=== PATIENT | female | born 1980 | race Caucasian/White ===

== ENCOUNTER 2019-12-02 21:57 | Emergency (ER) | payer MEDICAID, OTHER ==
[~2019-12-02] VITALS: Ht 144.8 cm; Wt 80.7 kg
[~2019-12-02 21:57] MED LIST: UNKNOWN ANTIBIOTIC
[2019-12-02 22:00] VITALS: BP 139/71
[2019-12-02] MEDS ORDERED: IBUPROFEN 600 MG TAB PO ONE (22:25)
[2019-12-02 23:44] VITALS: BP 139/71
== END 2019-12-02 23:44 | disposition home or self-care (01) ==
LOC: MED 21:57
DX: S06.0X9A Concussion with loss of consciousness of unspecified duration, initial encounter (principal); S00.83XA Contusion of other part of head, initial encounter; S40.812A Abrasion of left upper arm, initial encounter; Y08.89XA Assault by other specified means, initial encounter; Y93.89 Activity, other specified; Y92.89 Other specified places as the place of occurrence of the external cause; Y99.8 Other external cause status
CPT/HCPCS: 70450; 70486; 81025; 99285

== ENCOUNTER 2022-12-23 15:10 | Emergency (ER) | payer MEDICAID ==
[~2022-12-23] VITALS: Ht 157.5 cm; Wt 81.6 kg
[2022-12-23 15:22] VITALS: BP 139/70
[2022-12-23] MEDS ORDERED: LIDOCAINE 5% 1 EA PATCH TP SCH (15:45)
[2022-12-23] MEDS ORDERED: CYCLOBENZAPRINE 10 MG TAB PO ONE (15:45)
[2022-12-23 16:04] LABS: BASOPHILS # (AUTO) 0.1 K/uL (0.00-0.22); BASOPHILS % (AUTO) 1.2 % (0.0-2.0); EOSINOPHILS % (AUTO) 9.5 % (0.0-4.0); HEMATOCRIT 38.7 % (36-48); HEMOGLOBIN 13.6 g/dL (12.0-16.0); LYMPHOCYTES % (AUTO) 19.8 % (20.5-51.1); MEAN CORPUSCULAR HEMOGLOBIN 32 pg (27-31); MEAN CORPUSCULAR HGB CONC 35 g/dL (33-37); MEAN CORPUSCULAR VOLUME 89.7 fL (80-94); MONOCYTES # (AUTO) 0.6 K/uL (0.8-1.0); MONOCYTES % (AUTO) 6.1 % (1.7-9.3); NEUTROPHILS # (AUTO) 6.5 K/uL (1.8-7.7); NEUTROPHILS % (AUTO) 63.4 % (42.2-75.2); PLATELET COUNT (AUTO) 303 K/uL (140-450); RED BLOOD CELL COUNT(AUTO) 4.31 MIL/uL (4.20-5.40); RED CELL DISTRIBUTION WIDTH 12.8 % (11.6-13.7); WHITE BLOOD COUNT (AUTO) 10.2 K/uL (4.8-10.8)
[2022-12-23 16:13] LABS: ANION GAP 11.2 (8-16); CARBON DIOXIDE 26.7 mmol/L (21-32); CREATININE 0.7 mg/dL (0.6-1.3); POTASSIUM 3.9 mmol/L (3.5-5.1)
[2022-12-23] MEDS ORDERED: POLY10DR5 OP (16:42)
[2022-12-23 17:01] VITALS: BP 132/77
== END 2022-12-23 17:01 | disposition home or self-care (01) ==
LOC: MED 15:10
DX: H02.845 Edema of left lower eyelid (principal); M54.50 Low back pain, unspecified; M79.606 Pain in leg, unspecified
CPT/HCPCS: 36415; 80048; 84703; 85025; 99283